=== PATIENT | male | born 1985 | race Caucasian/White ===

== ENCOUNTER 2016-04-13 12:13 | Emergency (ER) | payer OTHER ==
[~2016-04-13] VITALS: Ht 180.3 cm; Wt 54.4 kg
--- NOTE | 2016-04-13 12:40 | ED GENERAL ADULT ---
History of Present Illness General Chief Complaint: General Adult Stated Complaint: ETOH DETOX, HX OF PANCREATITIS, HEROIN USE,ABD.PN Source: patient, family Exam Limitations: poor historian Vital Signs & Intake/Output Vital Signs & Intake/Output Vital Signs Date Time Temp Pulse Resp B/P Pulse O2 O2 Flow FiO2 Ox Delivery Rate 04/14 1635 98.7 71 14 149/95 03/05 1453 98.4 118 18 135/76 03/05 1439 98.4 118 18 135/76 98 Room Air 03/05 1131 99.0 84 18 129/80 100 Room Air 03/05 1130 99.0 84 18 129/80 03/05 0925 99.1 83 16 143/78 03/05 0924 99.1 83 18 143/78 99 Room Air 03/05 0736 97.5 104 18 138/91 96 Room Air 03/05 0734 96.0 104 18 138/91 03/05 0629 98.8 92 18 114/78 03/05 0624 98.8 92 18 114/78 96 Room Air 03/05 0316 97.3 93 18 124/77 03/05 0252 97.3 93 18 124/77 99 Room Air 03/05 0251 97.3 93 18 124/77 03/05 0145 97.4 87 18 114/65 03/05 0145 97.4 87 18 114/65 94 Room Air 03/04 2246 97.6 88 16 114/66 03/04 2246 97.6 88 16 114/66 94 Room Air 03/04 2116 97.7 104 18 102/62 03/04 2115 97.7 104 18 102/62 96 Room Air /04 1958 97.8 108 18 142/89 03/04 195 97.8 108 18 142/89 99 Room Air ED Intake and Output 03/ 0000 03/04 1200 Intake Total Output Total Balance Patient 120 lb Weight Allergies Coded Allergies: venom-honey bee (Intermediate, SWELLING 04/13/16) Reconcile Medications No Known Home Medications Triage Note: TRIAGE: 30 Y/O MALE PRESENTS REQUESTING DETOX FROM HEOIN, METHADONE, AND ETOH. DENIES SUICIDALITY OR HOMICIDALITY. LAST ETOH CONSUMPTION: 20 MINUTES AGO - 1 SHOT OF VODKA. LAST USE OF HEOIN - 1.5 DAYS AGO - 4 BAGS SHOT UP TO LEFT AC. LAST METHADONE - 20 MG OF LIQUID. +N/+V/-D. Triage Nurses Notes Reviewed? yes Onset: Gradual Duration: worse persistent since (2 days) Timing: recent history Injury Environment: home Severity: severe Severity Numbers: 8 No Modifying Factors: none HPI: Patient is a 30-year-old male with history of polysubstance abuse presenting to the emergency Department with mom with chief complaint of nausea and vomiting and abdominal pain that been going on for the past 2 days. He reports that his recently admitted to another facility for alcohol withdrawal and was discharged. Plan was to get set up with methadone clinic this following Friday. He reports that he couldn't take it anymore and started drinking as soon as he was discharged. Patient denying any suicidal or homicidal ideation. He reports abdominal pain is sharp and stabbing and periumbilically located. Denies any fevers or chills. His last use of heroin was about 3 days ago. Uses 2-3 packs every time he uses. He has been using the past several weeks but prior to that he reports that he never uses heroin before. He's been drinking for "a while". He drinks 2 pints a day of hard alcohol. His last drink was this morning. His last flare up of pancreatitis was 2 months ago. Denies any history of withdrawal seizures from alcohol detox. (PRINCE TORRES) Past History Travel History Traveled to [place] past 21 day No Medical History Any Pertinent Medical History? see below for history Gastrointestinal: pancreatitis Musculoskeletal: SLIPPED DISC Surgical History Surgical History: non-contributory Psychosocial History What is your primary language Jamaican Tobacco Use: Current Daily Use Daily Tobacco Use Amount/Type: => 5 Cigarettes daily ETOH Use: alcoholic Illicit Drug Use: heroin, METHADONE Family History Hx Contributory? No (PRINCE TORRES) Review of Systems Review of Systems Constitutional: Reports: malaise. Comments Review of systems: See HPI, All other systems negative. Constitutional, no chills fever or weight loss HEENT: No visual changes no sore throat no congestion Cardiovascular: No chest pain ,palpitation Skin, no jaundice no rashes Respiratory: No dyspnea cough sputum or hemoptysis GI: Positive nausea and vomiting : No dysuria No hematuria Muscle skeletal: no neck pain, Neurologic: No numbness no confusion Psych: Positive stress, anxiety Heme/endocrine: No bruising no bleeding no polyuria or polydipsia Immunology: No splenectomy or history of AIDS (PRINCE TORRES) Physical Exam Physical Exam General Appearance: well developed/nourished, no apparent distress, alert, awake , comfortable Comments: Well-developed well-nourished person in mild distress, curled into a ball. HEENT: extraocular motion intact, no nystagmus. Pupils equally round and reactive to light and accommodation. Nose is atraumatic.. No swelling or edema. Dry oral mucosa. Neck: Normal inspection Back: Nontender, no CVA tenderness. Full range of motion Cardiovascular: Regular rate and rhythms no murmurs rubs or gallops, normal JVP Respiratory: Chest nontender. No respiratory distress.breath sounds clear to auscultation bilaterally Abdomen: Soft, diffuse tenderness to palpation in the periumbilical region, moderate guarding, no rebound tenderness. Nondistended, no appreciable organomegaly. Normal bowel sounds. No ascites Extremity: No edema Neuro: Alert oriented x3 Skin: No appreciable rash on exposed skin, skin is warm and dry. Psych: Tearful, anxious Core Measures ACS in differential dx? No CVA/TIA Diagnosis: No Severe Sepsis Present: No Septic Shock Present: No (PRINCE TORRES) Progress Differential Diagnoses I considered the following diagnoses in my evaluation of the patient: Alcohol withdrawal, polysubstance abuse, intoxication, pancreatitis, gastritis, electrolyte abnormality, dehydration Plan of Care: Orders Procedure Date/time Status Regular Diet 04/14 B Active Current Medications Sig/Philipp Start time Last Medication Dose Stop Time Status Admin Lorazepam 2 MG ONCE ONE 04/14 1500 CAN (Ativan) 04/14 1501 Sodium Chloride 1,000 ML BOLUS ONE 04/13 2130 CAN (Normal Saline 0.9%) 04/13 2229 Initial ED EKG: NSR Hand-Off Endorsed To: SHONNA ANGEL,XI Addison Endorsed Time: 0 Pending: consult Comments: 04/13/2016 3:18:50 PM patient resting comfortably, no longer vomiting. Moved to behavioral health as she is not reporting suicidal ideation. Mom concerned because he's been reporting suicidal ideation intermittently over the past couple weeks. No history of attempts. He will be evaluated by crisis once clinically sober. ciwa will continue. No history of withdrawal seizures. (PRINCE TORRES) Hand-Off Endorsed To: ZACHARIAH COOPER MD Endorsed Time: 0700 Pending: consult (SHONNA ANGEL,XI Addison) Comments: Cleared by psychiatry for discharge (ZACHARIAH COOPER MD) Departure Departure Condition: Stable Clinical Impression Primary Impression: Polysubstance abuse Referrals: PATIENT HAS NO PRIMARY CARE DR (PCP/Family) Prescriptions: Current Visit Scripts No Known Home Medications (PRINCE TORRES) PA/STERILE PROCESSING TECHNICIAN Co-Sign Statement Statement: ED Attending supervision documentation- [X] I saw and evaluated the patient. I have also reviewed all the pertinent lab results and diagnostic results. I agree with the findings and the plan of care as documented in the PA's/STERILE PROCESSING TECHNICIAN's documentation. []X I have reviewed the ED Record and agree with the PA's/STERILE PROCESSING TECHNICIAN's documentation. [] Additions or exceptions (if any) to the PAs/STERILE PROCESSING TECHNICIAN's note and plan are summarized below: [] (XI KILPATRICK MD) Departure Time of Disposition: 1728 Disposition: HOME OR SELF CARE Additional Instructions: Follow up with the recommendations of the psychiatric technician Departure Forms: General Discharge Information (ZACHARIAH COOPER MD) Critical Care Note Critical Care Note Critical Care Time: non-applicable (PRINCE TORRES) as documented in the PA's/STERILE PROCESSING TECHNICIAN's documentation. []X I have reviewed the ED Record and agree with the PA's/STERILE PROCESSING TECHNICIAN's documentation. [] Additions or exceptions (if any) to the PAs/STERILE PROCESSING TECHNICIAN's note and plan are summarized below: [] (XI KILPATRICK MD) Critical Care Note Critical Care Note Critical Care Time: non-applicable (PRINCE TORRES)
[2016-04-13 13:06] LABS: ABSOLUTE BASOPHIL COUNT 0 /CUMM (0.0-0.2); ABSOLUTE EOSINOPHIL COUNT 0 /CUMM (0.0-0.7); ABSOLUTE GRANULOCYTE CT 7.6 /CUMM (1.4-6.5); ABSOLUTE MONOCYTE COUNT 0.3 /CUMM (0.10-0.60); BASOPHIL % 0.4 % (0.0-2.0); EOSINOPHIL % 0.2 % (0-5); GRANULOCYTE % 69.5 % (42.2-75.2); HEMATOCRIT 45.5 % (42-52); MEAN CORPUSCULAR HGB 31.3 PG (27.0-31.0); MEAN CORPUSCULAR HGB CONC 33.7 G/DL (33.0-37.0); MEAN CORPUSCULAR VOLUME 92.9 FL (80.0-94.0); MEAN PLATELET VOLUME 7.7 FL (7.4-10.4); PLATELET COUNT 527 /CUMM (130-400); RBC DISTRIBUTION WIDTH 14.4 % (11.5-14.5)
--- NOTE | 2016-04-13 14:59 | RADIOLOGY REPORT ---
EXAMINATION: XR PORTABLE CHEST CLINICAL INFORMATION: 30-year-old man with cough after vomiting. COMPARISON: None TECHNIQUE: Portable AP view of the chest was obtained. FINDINGS: The lateral aspect of the left lung base has not been included. There is streaky opacity extending from the right hilum towards the right lung apex that is chronic appearing and could reflect atelectasis or scarring. Visualized portions of the lungs are otherwise clear. Heart size is within the range of normal and there are no pleural effusions. IMPRESSION: Slightly limited due to noninclusion of the left lung base. Aside from streaky nonspecific opacity at the right lung apex, there is no focal consolidation.
--- NOTE | 2016-04-14 15:19 | ED PSYCH CRISIS CONSULTATION ---
Crisis Consult Basic Assessment Date of Consult: 04/14/16 Responsible Person/Accompanied By: self,mother Insurance Authorization: Insurance #1: Insurance name: SELF-PAY Phone number: Policy number: Group number: Authorization number: ED Provider: Patient's ED Provider: PRINCE TORRES Primary Care Physician: Patient's PCP: PATIENT HAS NO PRIMARY CARE DR PCP's Phone Number: Chief Complaint: ETOH/Drug Related Complaint Patient's Quote: "I want to give up alcohol." Present Illness: The pt is a 30 yo single male brought to the ED by his mother due to alcohol and heroin withdrawal as well as possible pancreatitis. While receiving treatment in the ED the pts mother reported possible SI statements recently by the pt to his sister. The pts BAL upon arrival to the ED was 399. During this assessment the pt presents alert, oriented and cooperative with goal directed speech. The pt remained lying on his side throughout this assessment. The pt denies SI, HI, AH, VH and paranoia. The pt denies any past SI. The pt denies any mood related problems. The pts toxicology screen is positive for Methadone. The pt reports a long history of poor sleep and no difficulties with his appetite. The pt reports he recently stated to his sister I will if I cannot stop drinking. The pt is requesting detox from alcohol and methadone maintenance. Pt stated he did not come to the ED for SI. Crisis spoke by phone with the pts sister Gala Krueger ([phone]) who reports the pt sent her a text yesterday stating I dont want to get mom involved but I keep thinking about killing myself. Pts sister also reported that on 04/07/16 the pt stated I want to end it all. In regards to these statements about suicide, the pt stated "I say bullshit when I am drunk." The sister is not aware of the pt attempting to harm himself in the past. The sister reports the pts stressors are his drug and alcohol use along with arguing with his 5 month old sons mother. Sister reports a history of anxiety and addiction in family. Mother and sister each stated they do not believe the pt will harm himself. The pt reports drinking at least 2 pints of hard liquor each day and purchasing Methadone on the street. The pt denies any history of seizures and stated he drinks when he wakes up in the morning. The pt was admitted to [facility] on 04/07/16 for alcohol withdrawal and discharged on 04/10/16. The pt attended an intake appt at [facility] methadone clinic in [place] on 04/11/16. The pt reports he was not accepted into treatment due to showing up intoxicated. The pt reports he last used heroin 2 weeks ago and was using a bundle per day. The pt reports purchasing methadone off the street to manage withdrawal. The pt reports residential treatment 3x for dependence on pain medication. The pt reports his most recent residential stay was 10 years ago. 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 The pt reports he has not worked in 3 weeks and that his varnish supervisor is supportive. Crisis spoke with the pts mother Krystal Krueger ([phone]) who stated the pt has not made SI statements to her. Mother reports the pt has not attempted to harm himself in the past. Met with mother and pt, pt reitirated he wants to go to a detox facility. Mother is in agreement with this plan and stated she will bring the pt to the detox. Pt's presentation discussed with Dr. Sun, plan is for discharge with referral information for detox facilities. Pt handed a list of resources, discussed the pt calling for bed availability. Discussed Crisis is aware [facility] has bed availability, encouraged pt to call to complete their pre-screeing. Pt stated he will call and pursue detox today. Patient's Address: [address] [place] [address] Other Who Do You Live With? Mother Family/Informants Interviewed: pt's sister, mother Allergies - Coded Allergies: venom-honey bee (Intermediate, SWELLING 04/13/16) Current Medications - No Known Home Medications Past History Past Medical History Gastrointestinal: pancreatitis Musculoskeletal: SLIPPED DISC Past Surgical History Surgical History: non-contributory Psychosocial History Strengths/Capabilities: pt employed, stable housing, supportive family Physical Limitations (Interventions): n/a Psychiatric Treatment History Psych Treatment Psychiatric Treatment No Substance Use/Abuse History Drug Use/Abuse 1 Substances Used/Abused Yes Substance Used/Abused Alcohol First Use age 28 Last Used 04/13/16 How much used/taken at least 2 pints How often daily For how long past year Route of use oral Drug Use/Abuse 2 Substances Used/Abused Yes Substance Used/Abused Heroin First Use 18yo Last Used pt reports 2 weeks ago How much used/taken 1 bundle How often daily For how long pt reports past several years Route of use inject Drug Use/Abuse 3 Substances Used/Abused Yes Substance Used/Abused Non-Prescribed Opiates First Use 17yo Last Used pt reports several years ago How much used/taken pt reports mulitple pills per day How often daily when using For how long 8-10 years Route of use oral Substance Abuse Treatment Substance Abuse Treatment Past Substance Abuse TX Yes Inpatient Treatment Yes Outpatient Treatment Yes Location of Treatment [facility] Reason for Treatment opiates, pain medication, alcohol Dates of Treatment starting at age 17, pt unable to provide specific dates Response to Treatment poor Current Mental Status Mental Status Orientation: Person, Place, Situation Affect: Flat Speech: WNL Neuro-vegetative: Sleep Disturbance Appearance Appearance- Dress/Hygiene: appropriate Behaviors Thought Process: WNL Thought Content: WNL Memory: WNL Insight: Poor SI/HI Risk Assessment Past Suicidal Ideation/Attempts No Current Suicidal Ideation/Att No (pt denies) Past Homicidal Ideation/Att: No Current Homicidal Ideation/Attempts No Degree of Intent: Thoughts/No Intent Danger To: Others (n/a) Gravely Disabled: Inability (n/a) Risk Factors: access to lethal means, chronic/serious med cond., SA/MH hospitalized, substance abuse, poor impulse control, male, limited support Lethality Ratin PTSD Checklist PTSD Done? patient declined ED Management Sitter: Yes Restraints: No DSM5/PS Stressors/Medical Prob Diagnosis' (DSM 5, Stressors, Medical): F32.9 Unspecified Depressive Disorder F10.20 Alcohol Use Disorder, Severe F11.20 Opioid Use Disorder, Severe Current GAF: 38 Departure Disposition Psych Medical Clearance Date: 04/14/16 Medically Cleared at: 1100 Time Started: 1300 Time Ended: 1345 Psychiatrist Consulted: Kae Sun MD Date Disposition Established: 04/14/16 Time Disposition Established: 172 Plan for Disposition - Modality: Pt will pursue alcohol detox and methadone maintenance. Facility: Patient to Arrange Rationale for Disposition: Pt is not in need of psychiatric hospitalization. Referrals PATIENT HAS NO PRIMARY CARE DR (PCP/Family)
[2016-04-14 18:00] VITALS: BP 135/88
== END 2016-04-14 18:41 ==
LOC: ERH 12:13
PROVIDERS: Physician Assistant
DX: F10.10 Alcohol abuse, uncomplicated (principal); F11.10 Opioid abuse, uncomplicated; R11.2 Nausea with vomiting, unspecified; R10.9 Unspecified abdominal pain
CPT/HCPCS: 80307; 81003; 93005; 93010; 96361; 96374; 96375; 99291; G0463; G0480; J1885; J2405; J2550; J2765